=== PATIENT | female | born 1965 ===

== ENCOUNTER 2025-06-11 06:32 | Outpatient (REF) | payer BC, SELFPAY ==
--- NOTE | ~2025-06-11 | US_ITS ---
EXAMINATION: US ABDOMEN HISTORY: ELEVATED LFTS TECHNIQUE: Real-time grayscale ultrasound imaging of the abdomen was performed and images were reviewed. COMPARISON: There are no prior studies available for comparison. FINDINGS: Liver: The right lobe of the liver measures 14.2 cm in size. The left lobe of the liver measures 7.4 cm in size. The liver demonstrates increased echotexture, consistent with steatosis. There are cysts in the right lobe measuring 2.6 x 2.1 x 2.6 cm and 2.2 x 2.0 x 1.6 cm. No intrahepatic biliary ductal dilatation is identified. There is normal hepatopedal flow in the portal vein. Gallbladder and biliary tree: The gallbladder is unremarkable, without evidence of calculi, wall thickening, or pericholecystic fluid. There is no sonographic Silvestre sign. The common bile duct is normal in caliber measuring 2 mm. Kidneys: The right kidney measures 11.0 cm in length. The left kidney measures 11.3 cm in length. The kidneys are unremarkable, without evidence of masses, hydronephrosis, or calculi. Pancreas: The pancreatic head, neck, and body are unremarkable. The pancreatic tail is obscured by bowel gas. Spleen: The spleen is normal in size and contour, measuring 6.9 cm in length. Abdominal aorta and inferior vena cava: The visualized portions of the abdominal aorta and inferior vena cava are normal in caliber. There is no free fluid in the abdomen. US/US abdomen complete IMPRESSION: Hepatic steatosis. Hepatic cysts as described. Electronically signed by: Fermin Andersen MD 06/11/2025 10:57 AM [facility]
--- OUTSIDE RECORDS SUMMARY | 2025-06-11 06:37 | XMS_ITS | Clinical Summary ---
Author Organization [facility] Address [address] [place] [address] Phone Care Team Providers Care Candy Supervisor Name Role Phone Sara Garcia MD Primary Care Provider + Sara Garcia MD Unavailable [phone] Allergies No known active allergies Medications etonogestrel-et hinyl estradiol (NUVARING) 0.12-0.015 mg/24 hr vaginal ring 1 ring Vaginal Active Encounters Date Type Department Care Team Description 05/19/2025 Transcribe Orders Virtual Department [address] [place] [address] Cristina Suarez MD Breast screening (Primary Dx) from Last 3 Months Immunizations Immunization Administration Dates Next Due Tdap 08/02/2021 Social History Tobacco Use Types Packs/Day Years Used Date Smoking Tobacco: Every Day Smokeless Tobacco: Never Alcohol Use Standard Drinks/Week Comments Yes 0 (1 standard drink = 0.6 oz pur e alcohol) Education Answer Date Recorded Are you interested in more education? Not on eleonora e 11/17/2022 Are you concerned about learning? Not on file 11/17/2022 No 11/17/2022 No 11/17/2022 Digital Access Answer Date Recorded No 12/16/2022 No 12/16/2022 Reliable internet access at home? Not on file 12/16/2022 Device with a working camera? Not on file Comments Unknown Sex and Gender Information Value Date Recorded Sex Assigned at Female 08/02/2021 9:31 PM EST Legal Sex Female 9:40 PM EDT Gender Identity Female 08/02/2021 9:31 PM EST Sexual Orientation Straight 08/02/2021 9: 31 PM EST Last Filed Vital Signs Vital Sign Reading Time Taken Comments Blood Pressure 124/83 08/02/2021 11:54 PM EST Pulse 67 08/02/2021 11:54 PM EST Temperature 36.4 C (97.5 F) 08/02/2021 11:54 PM EST Respiratory Rate 18 08/02/2021 11:54 PM EST Oxygen Saturation 99% 08/02/2021 11:54 PM EST Inhaled Oxygen Concentration - - Weight 70.3 kg (155 lb) 08/02/2021 9:32 PM EST Height 167.6 cm (5' 6 ) 08/02/2021 9:32 PM EST Body Mass Index 25.02 08/02/2021 9:32 PM EST Plan of Treatment Upcoming Encounters Date Type Department Care Team (Late st Contact Info) Description 05/19/2025 Procedure Pass [address] [address] 01/29/2026 1:30 PM EDT Appointment [address] [address] Cristina Suarez MD [address] [place] [id number] Health Maintenance Due Date Last Done Comments LIPID PANEL 1965 DEPRESSION SCREENING 1977 SMOKING Hx and SMOKELESS TOBACCO SCREENING 1978 HEPATITIS C SCREENING 10/14/1983 HIV ONE-TIME SCREENING (18-6 5 YEARS) 10/14/1983 PNEUMOCOCCAL VACCINES (50+ years) (1 of 2 - PCV) 1984 PAP SMEAR 1986 MAMMOGRAM 2005 COLOGUARD 2010 FIT TEST 2010 FOBT 2010 SIGMOIDOSCOPY 2010 VIRTUAL COLONOSCOPY 2010 ZOSTER VACCINES (1 of 2) 10/14/2015 INFLUENZA VACCINE (#1) 2025 COVID-19 VACCINE (3 - 2024-2 6 season) 2025 11/26/2020, 11/05/2020 COLONOSCOPY 05/15/2027 05/15/2017 COLORECTAL CANCER SCREENING 05/15/2027 Adult Td,Tdap Booster 08/02/2031 08/02/2021 RSV VACCINE (1 - 1-dose 75+ series) 2040 HEPATITIS A VACCINES Aged Out No long er eligible based on patient's age to complete this topic HIB VACCINES Aged Out No longer eligi ble based on patient's age to complete this topic MENINGOCOCCAL VACCINES (ACWY) Aged Out No longer eligible based on patient's age to complete this topic MENINGOCOCCAL VACCINES (B) Aged Out N o longer eligible based on patient's age to complete this topic Medical Devices Not on file Procedures Procedure Name Priority Date/Time Associated Diagnosis Comments COLONOSCOPY FOR RESULT ENTRY ONLY Routine 05/15/2017 from Last 3 Months or Most Recently Relevant to Health Maintenance Results * COLONOSCOPY FOR RESULT ENTRY ONLY (05/15/2017) Colonoscopy External us Historical Provider MD HEALTH MAINTENANCE Final Result from Last 3 Months or Most Recently Relevant to Health Maintenance [facility] [place] [address] [place] [address] HMO POS [facility] HMO [place] [address] [place] [address] HMO POS [facility] HMO POS [facility] HMO POS [employer] [place] [address] [place] [address] HMO POS Care Teams Candy Supervisor Relationship Specialty Start Date End Date Sara Garcia MD [address] [place] [address] PCP - General 05/07/17 Sara Garcia MD [address] [place] [address] Insurance Assigned Provider 10/27/23 Additional Source Comments The information contained in this document represents components of the legal health record. It is not the complete legal health record.[facility]
--- OUTSIDE RECORDS SUMMARY | 2025-06-11 06:37 | XMS_ITS | Encounter Summary ---
Author Organization [facility] Address [address] [place] [address] Phone Care Team Providers Care Director [employer] Name Role Phone Sara Garcia MD Primary Care Provider + Sara Garcia MD Unavailable [phone] Encounter Details Date Type Department Care Team (Late st Contact Info) Description 05/19/2025 Transcribe Orders Virtual Department [address] [place] [address] Cristina Suarez MD [address] [place] [phone] [email or web address] Breast screening (Primary Dx) Social History Tobacco Use Types Packs/Day Years [...] Orientation Straight 08/02/2021 9: 31 PM EST documented as of this encounter Plan of Treatment Upcoming Encounters Date Type Department Care Team (Late st Contact Info) Description 05/19/2025 Procedure Pass [address] [address] 01/29/2026 1:30 PM EDT Appointment [address] [address] Cristina Suarez MD [address] [place] [address] Scheduled Orders Name Type Priority Associated Diagnoses Orde r Schedule Mammogram Screening (Bilateral) Imaging Routine Breast screening Expected: 06/19/2025, Expires: 05/19/2026 documented as of this encounter Visit Diagnoses Diagnosis Breast screening- Primary Breast screening, unspecified documented in this encounter Care Teams Director [employer] Relationship Specialty Start Date End Date Sara Garcia MD [address] [place] [address] PCP - General 05/07/17 Sara Garcia MD [address] [place] [address] Insurance Assigned Provider 10/27/23 documented as of this encounter Additional Source Comments The information contained in this document represents components of the legal health record. It is not the complete legal health record.[facility]
== END 2025-06-11 06:33 | disposition home or self-care (01) ==
LOC: HO.UMASIMG 06:32
PROVIDERS: Visit Provider Family Medicine
DX: R74.01 Elevation of levels of liver transaminase levels (principal)
CPT/HCPCS: 76700

== ENCOUNTER → 2025-06-11 09:05 | Outpatient (BNV) | payer BC, SELFPAY | PROVIDERS: Visit Provider Radiology Diagnostic Radiology | DX: R74.01 Elevation of levels of liver transaminase levels (principal) | CPT/HCPCS: 76700 ==